=== PATIENT | female | born 1995 | race Hispanic/Latino ===

== ENCOUNTER 2017-06-08 05:03 | Emergency (ER) | payer OTHER ==
[~2017-06-08] VITALS: Ht 160 cm; Wt 51.7 kg
[~2017-06-08 05:03] MED LIST: PEPCID40 MG PO
[2017-06-08] MEDS ORDERED: MONO-LINYAH1 EACH PO (05:20)
[2017-06-08] MEDS ORDERED: PROTONIX40 MG PO (06:13)
== END 2017-06-08 06:21 | disposition home or self-care (01) ==
LOC: ED 05:03
DX: R10.13 Epigastric pain (principal); J45.909 Unspecified asthma, uncomplicated; Z90.49 Acquired absence of other specified parts of digestive tract; Z79.899 Other long term (current) drug therapy
CPT/HCPCS: 80053; 81001; 83690; 84703; 85025; 96374; 99283; J2405